=== PATIENT | female | born 1960 | race Caucasian/White ===

== ENCOUNTER 2024-04-14 16:41 | Emergency (ER) | payer BC, SELFPAY ==
[2024-04-14 16:43] VITALS: BP 145/98
[2024-04-14 17:09] LABS: Urine Albumin Trace (Neg - Trace); Urine Bilirubin Negative (Negative); Urine Character Clear (Clear); Urine Color Yellow; Urine Glucose Negative (Negative); Urine Ketone Negative (Negative); Urine Leukocyte Trace (Negative); Urine Nitrite Negative (Negative); Urine Occult Blood Negative (Negative); Urine Urobilinogen Negative (Neg - 1+)
[2024-04-14 17:31] LABS: Urine Bacteria Few (Negative); Urine Mucus Few; Urine Red Blood Cell 0-2 /HPF (0-2); Urine White Cell 0-2 /HPF (0-5)
[2024-04-14] MEDS: NSS 1000 IV (18:18)
[2024-04-14 18:22] VITALS: BMI 30.9
[2024-04-14 18:31] LABS: % Basophils 0.2 % (0-2); % Eosinophils 0.3 % (0-6); % Immature Granulocytes 0.3 % (0-0.5); % Lymphocytes 16.4 % (20.5-51.1); % Monocytes 6.5 % (1.7-9.3); % Neutrophils 76.3 % (42.2-75.2); Absolute Lymphocytes 2.4 10^3/uL (1.2-3.4); Absolute Neutrophils 11.3 10^3/uL (1.4-6.5); Hematocrit 40.2 % (37.0-47.0); Hemoglobin 13.8 g/dL (12.0-16.0); Mean Corp Hgb Conc. 34.3 g/dL (33.0-37.0); Mean Corpuscular Hgb 29.4 pg (27.0-31.0); Mean Corpuscular Volume 85.7 fL (81.0-99.0); Mean Platelet Volume 9.4 fL (7.4-10.4); Nucleated Red Blood Cells % 0 %; Platelet Count 238 10^3/uL (130-400); Red Blood Cell Count 4.69 10^6/uL (4.20-5.40); Red Cell Dist. Width 12.9 % (11.5-14.5); White Blood Cell Count 14.9 10^3/uL (4.8-10.8)
[2024-04-14 18:45] LABS: Lactic Acid 0.7 mmol/L (0.7-2.0)
[2024-04-14 18:47] LABS: ALT (SGPT) 35 U/L (0-35); AST (SGOT) 26 U/L (14-36); Albumin 4.1 g/dl (3.5-5.0); Alkaline Phosphatase 99 U/L (38-126); Blood Urea Nitrogen 10 mg/dl (7-17); Calcium 9.4 mg/dl (8.4-10.2); Carbon Dioxide 26 mmol/L (22-30); Chloride 99 mmol/L (98-107); Estimated Creatinine Clearance 97 ml/min; Glucose 92 mg/dl (70-99); Potassium 3.8 mmol/L (3.5-5.1); Sodium 134 mmol/L (135-145); Total Bilirubin 1.5 mg/dl (0.2-1.3); Total Protein 6.4 g/dl (6.3-8.2); eGFR > 60.00
[2024-04-14] MEDS: FLAGYL 500 MG PO (20:32)
[2024-04-14] MEDS: LEVAQUIN 500 MG PO (20:32)
[2024-04-14 20:33] VITALS: BP 147/87
--- NOTE | 2024-04-14 20:49 | ED.GENMED ---
History of Present Illness
General
Chief Complaint: Abdominal Symptoms
Source: patient and spouse
Time Seen by Provider: 04/14/24 17:33
History of Present Illness
History of Present Illness:
63-year-old female who presents with lower abdominal pain. Patient was seen at urgent care and was diagnosed with UTI and put on Bactrim. Patient awakened at 17,000. Patient returned for lower abdominal pain and back pain today. Also had some
chills. Presents to ER for further evaluation. Patient states on my evaluation check she feels better. Initially and had some urinary frequency and in the past has had a UTI. No vomiting.
Past History
Past History
ED Past Medical History: Hypercholesterolemia and Other (UTI)
ED Past Surgical History: Orthopedic
Phy Exam
Physical Exam
Physical Exam:
CONSTITUTIONAL Patient alert and oriented to person, place and time. Well-appearing. Vital signs reviewed.
HEAD atraumatic, normocephalic.
EYES eyelids normal to inspection, Pupils equally round and reactive to light, Extraocular muscles intact, Conjunctiva normal, Sclera normal.
NECK normal range of motion, Trachea midline, no jugular venous distention.
RESPIRATORY CHEST No respiratory distress noted, Chest expansion equal, Bilateral breath sounds clear.
CARDIOVASCULAR regular rate and rhythm, Heart sounds normal.
ABDOMEN mild to moderate suprapubic tenderness, Bowel sounds normal. No distention.
BACK normal inspection, no obvious deformities
UPPER EXTREMITY range of motion normal, Motor strength normal, no cyanosis, no edema.
LOWER EXTREMITY range of motion normal, Motor strength normal, no cyanosis, no edema.
NEURO Speech normal, No focal motor deficits, Tien coma scale 15, Memory normal, Cranial Nerves intact to screening exam.
SKIN skin warm, dry, and normal in color.
PSYCHIATRIC patient oriented to person place and time, Normal affect.
Course
Orders/Labs/Results
Orders:
Orders
04/14/24 16:53
Urinalysis Reflex To Culture Urgent
Date Specimen was Collected: 04/14/24
Time Specimen was Collected: 16:49
Urine Microscopic Reflex Cult Urgent
04/14/24 17:54
CT Abd/pel Without Iv Or Oral Urgent
Comment:
Reason For Exam: UTI, leukocytosis, R flank pain, r/o obstruction
0.9% Sodium Chloride 1000 ml [Nss] 1,000 ml IV BOLUS
04/14/24 18:16
Complete Blood Count/With Diff Urgent
Comprehensive Metabolic Panel Urgent
Lactic Acid Q4H
Comment: CANCEL 2nd LACTIC ACID IF 1st LACTIC ACID IS LESS THAN 2
Blood Culture Q30M
VINCE Source: Blood/Venous
Specimen Description:
04/14/24 18:19
Blood Culture Q30M
VINCE Source: Blood/Venous
Specimen Description:
04/14/24 20:25
LevoFLOXacin [Levaquin] 500 mg PO NOW STA
MetroNIDAZOLE [Flagyl] 500 mg PO NOW STA
04/14/24 20:49
LevoFLOXacin [Levaquin] 500 mg PO NOW STA
MetroNIDAZOLE [Flagyl] 500 mg PO NOW STA
Abnormal Lab Results
04/14/24 04/14/24
16:53 18:16
WBC 14.9 H 10^3/uL
(4.8-10.8)
Absolute Neuts (auto) 11.3 H 10^3/uL
(1.4-6.5)
Absolute Monos (auto) 1.0 H 10^3/uL
(0.1-0.6)
Neutrophils % 76.3 H %
(42.2-75.2)
Lymphocytes % 16.4 L %
(20.5-51.1)
Sodium 134 L mmol/L
(135-145)
Total Bilirubin 1.5 H mg/dl
(0.2-1.3)
Leukocyte Esterase Rfl Trace A
(Negative)
Urine Bacteria (Reflex) Few A
(Negative)
04/14/24 18:16
04/14/24 18:16
Vital Signs
Initial and Last Documented VS:
Initial Vital Signs
Temp Pulse Resp BP Pulse Ox
98.1 F 90 16 145/98 100
04/14/24 16:43 04/14/24 16:43 04/14/24 16:43 04/14/24 16:43 04/14/24 16:43
Last Documented Vital Signs
Temp Pulse Resp BP Pulse Ox
98.1 F 74 19 147/87 100
04/14/24 16:43 04/14/24 20:33 04/14/24 20:33 04/14/24 20:33 04/14/24 20:33
MDM/Problems Addressed
MDM/Problems Addressed:
Acute diverticulitis
*Radiology
Radiology exam reviewed: preliminary read by ED provider (Diverticulitis) and radiology read reviewed
*Pulse Oximetry
Patient hypoxic: no
*Critical Care Note
Total Time (30-74mins, 75-104mins- exclusive of procedures): Not Applicable
Data Reviewed
Source: patient and spouse
Further Testing Considered But Not Given:
Consider CT with IV contrast but noncontrast study to evaluate tract for stones
Patient Management
Escalation/DeEscalation of care consider admission/obs:
61-year-old female presents for evaluation but found to have diverticulitis. I suspect this is the cause of her leukocytosis and initial symptoms given approximately 3 bladder. Cover with Levaquin Flagyl and okay for discharge
ED Attending Note
-
Portions of this chart may have been created with voice recognition software.� Occasional wrong word or��sound alike� substitutions may have occurred due to the inherent limitations of voice recognition software.
Discharge Plan
Departure
Patient Disposition: Home (Routine Discharge)
Date of Disposition: 04/14/24
Time of Disposition: 20:50
Patient with high blood pressure during this ER visit?: Yes
Discharge Problem:
Diverticulitis
Instructions: Diverticulitis (DC), BLOOD PRESSURE
Prescriptions:
New
levofloxacin 500 mg tablet
500 mg PO DAILY 10 Days Qty: 10 0RF
metronidazole 500 mg tablet
500 mg PO TID Qty: 30 0RF
Referrals:
Sherwin Mirza DO [Family Provider] -
Activity Restrictions/Additional Instructions:
Please stick to a low residue diet as discussed. Please see your doctor next week for follow-up and reevaluation. Further follow-up with gastroenterology may be necessary. Return to [facility] for worsening pain, intractable pain, fevers, blood in
stool or any other concerns
Interventions
Interventions:
*Risk Screen - Suicide Last Done: 04/14/24 18:22
*General Assessment Last Done: 04/14/24 16:43
*Neglect/Abuse Screening Last Done: 04/14/24 18:22
ED- Fall Risk Assessment Last Done: 04/14/24 18:22
*ED COVID-19 Vaccine History Last Done: 04/14/24 16:43
*Nursing Disposition Last Done: 04/14/24 20:58
[facility]-Pjavbp-Zkjbkttfms Assessment Last Done: 04/14/24 18:22
Discharge Date and Time
Discharge Date/Time: 04/14/24 20:58
Print Language: FRENCH
== END 2024-04-14 20:58 | disposition home or self-care (01) ==
LOC: EMR 16:41
PROVIDERS: EMERGENCY PHYSICIAN Emergency Medicine; FAMILY PHYSICIAN Family Medicine
DX: K57.92 Diverticulitis of intestine, part unspecified, without perforation or abscess without bleeding (principal); N39.0 Urinary tract infection, site not specified; R03.0 Elevated blood-pressure reading, without diagnosis of hypertension; E78.00 Pure hypercholesterolemia, unspecified; Z87.440 Personal history of urinary (tract) infections
CPT/HCPCS: 99284; 96360; 74176; 80053; 81003; 81015; 83605; 85025; 87040

== ENCOUNTER 2024-08-08 14:34 | Emergency (ER) | payer BC, SELFPAY ==
[2024-08-08 14:46] VITALS: BP 165/108
--- NOTE | 2024-08-08 14:48 | ED.GENMED ---
ED Provider Triage
<Gerhard Oseguera PA-C - Last Filed: 08/08/24 14:51>
-
Patient seen by provider in Triage?: Seen in Triage
63-year-old female with history of diverticulitis presents with worsening left lower quadrant abdominal pain for several days. She was presumed to have a flare of her diverticulitis and started Augmentin 3 days ago. She has been on 2 doses of that
every day since then. She notes vomiting chills and persistent pain. No prior abdominal surgical history. Vital signs are stable through triage. Will check labs. Check CT of abdomen with IV contrast to evaluate for diverticulitis versus abscess
versus other sources of discomfort.
4 mg ODT Zofran ordered in triage
History of Present Illness
<Gerhard Oseguera PA-C - Last Filed: 08/08/24 14:51>
General
Chief Complaint: Abdominal Pain
Time Seen by Provider: 08/08/24 20:22
<Mamadou Romano DO - Last Filed: 08/08/24 21:55>
History of Present Illness
History of Present Illness:
TIME OF INITIAL ENCOUNTER: 8:30 PM
HPI: 63-year-old female with history of diverticulitis presents with worsening left lower quadrant abdominal pain for several days. She was presumed to have a flare of her diverticulitis and started Augmentin 3 days ago. She has been on 2 doses
of that every day since then. She notes vomiting chills and persistent pain. No prior abdominal surgical history.
EXAM:
GENERAL: Well appearing in no distress
HEENT: Moist oral mucosa
CARDIOVASCULAR: No murmurs, normal heart rate, regular rhythm, No chest wall tenderness
PULMONARY: No respiratory distress, breath sounds are clear and equal
ABDOMEN: Soft with no peritoneal signs, no tenderness
NEUROLOGIC: Excellent strength all extremities, no coordination deficits
PSYCHIATRIC: Appropriate mental status, normal insight and judgement
EXTREMITIES: Nontender, no edema, moves all extremities equally
SKIN: No rash, no lesions
NUMBER AND COMPLEXITY OF PROBLEMS ADDRESSED AT THE ENCOUNTER
� Chronic conditions affecting care: Diverticular disease, hyperlipidemia
� Acute Exacerbation and/or Progression of Chronic Illness: This is an acute problem
� Differential Diagnosis includes: Diverticulitis, abscess, perforation, medication (Augmentin) intolerant
AMOUNT AND/OR COMPLEXITY OF DATA TO BE REVIEWED AND ANALYZED
� I performed an independent evaluation of and my interpretation is:
EKG:
CT: CT imaging personally reviewed and agree with radiologist interpretation
X-rays:
Laboratory Studies: White count is normal, chemistries unremarkable other than minimal elevation of transaminases
Other:
� Review of other/old records: I reviewed records, the patient was seen in the ER in March and was treated as an outpatient for diverticulitis
� Clinical information was obtained by an independent historian: I spoke to the at bedside
� Prescriptions/Medications Considered but not given:
� Further testing considered but not performed:
RISK OF COMPLICATIONS AND/OR MORBIDITY OR MORTALITY OF PATIENT MANAGEMENT
� Social determinants of health affecting care: Lives at home
� Discussion with other providers:
� Escalation of care including admission/observation vs risk of discharge considered: I discussed CT report with patient. No clear evidence of diverticulitis today. I informed her of the questionable abnormality of the pancreas
and need for outpatient nonemergent MRI. She is to follow-up with her primary care doctor about this. We did talk about the possibly of the Augmentin make her symptoms worse. She is going to stop the Augmentin and I did send a prescription to the
pharmacy for Cipro and Flagyl in case her symptoms recur.
ANY OTHER UPDATES:
Past History
<Gerhard Oseguera PA-C - Last Filed: 08/08/24 14:51>
Past History
ED Past Medical History: Hypercholesterolemia and Other (UTI)
ED Past Surgical History: Orthopedic
Phy Exam
<Mamadou Romano DO - Last Filed: 08/08/24 21:55>
Physical Exam
Physical Exam:
See HPI
Course
<Gerhard Oseguera PA-C - Last Filed: 08/08/24 14:51>
Orders/Labs/Results
Orders:
Orders
08/08/24 14:48
CT Abd/pelvis W Iv Cont Urgent
Comment:
Reason For Exam: llq pain
08/08/24 14:51
Ondansetron Orally Disint [Zofran Odt (Orally Disintegrating)] 4 mg PO NOW STA
08/08/24 14:52
Ondansetron Orally Disint [Zofran Odt (Orally Disintegrating)] 4 mg .ROUTE .STK-MED ONE
08/08/24 14:59
Complete Blood Count/With Diff Urgent
Comprehensive Metabolic Panel Urgent
08/08/24 20:07
Urinalysis Reflex To Culture Urgent
Date Specimen was Collected: 08/08/24
Time Specimen was Collected: 15:04
Urine Microscopic Reflex Cult Urgent
Urine Culture Urgent
VINCE Source: U
Specimen Description:
Date Specimen was Collected: 08/08/24
Time Specimen was Collected: 15:04
08/08/24 21:06
0.9% Sodium Chloride 1000 ml [Nss] 1,000 ml IV BOLUS
Abnormal Lab Results
08/08/24 08/08/24
14:59 20:07
Eosinophils % 6.3 H %
(0-6)
BUN 6 L mg/dl
(7-17)
Creatinine 0.5 L mg/dL
(0.6-1.0)
Glucose 104 H mg/dl
(70-99)
AST 54 H U/L
(14-36)
ALT 37 H U/L
(0-35)
Urine Ketones 3+ A
(Negative)
Urine Bilirubin 1+ A
(Negative)
Urine Urobilinogen 2+ A
(Neg - 1+)
Leukocyte Esterase Rfl 2+ A
(Negative)
Urine WBC (Reflex) 40-50 A /HPF
(0-5)
Urine Bacteria (Reflex) Few A
(Negative)
08/08/24 14:59
08/08/24 14:59
Vital Signs
Initial and Last Documented VS:
Initial Vital Signs
Temp Pulse Resp BP Pulse Ox
98.0 F 99 16 165/108 96
08/08/24 14:46 08/08/24 14:46 08/08/24 14:46 08/08/24 14:46 08/08/24 14:46
Last Documented Vital Signs
Temp Pulse Resp BP Pulse Ox
97.8 F 84 18 133/68 96
08/08/24 18:07 08/08/24 21:43 08/08/24 21:43 08/08/24 21:03 08/08/24 21:43
<Mamadou Romano, DO - Last Filed: 08/08/24 21:55>
Orders/Labs/Results
Orders:
Orders
08/08/24 14:48
CT Abd/pelvis W Iv Cont Urgent
Comment:
Reason For Exam: llq pain
08/08/24 14:51
Ondansetron Orally Disint [Zofran Odt (Orally Disintegrating)] 4 mg PO NOW STA
08/08/24 14:52
Ondansetron Orally Disint [Zofran Odt (Orally Disintegrating)] 4 mg .ROUTE .STK-MED ONE
08/08/24 14:59
Complete Blood Count/With Diff Urgent
Comprehensive Metabolic Panel Urgent
08/08/24 20:07
Urinalysis Reflex To Culture Urgent
Date Specimen was Collected: 08/08/24
Time Specimen was Collected: 15:04
Urine Microscopic Reflex Cult Urgent
Urine Culture Urgent
VINCE Source: U
Specimen Description:
Date Specimen was Collected: 08/08/24
Time Specimen was Collected: 15:04
08/08/24 21:06
0.9% Sodium Chloride 1000 ml [Nss] 1,000 ml IV BOLUS
Abnormal Lab Results
08/08/24 08/08/24
14:59 20:07
Eosinophils % 6.3 H %
(0-6)
BUN 6 L mg/dl
(7-17)
Creatinine 0.5 L mg/dL
(0.6-1.0)
Glucose 104 H mg/dl
(70-99)
AST 54 H U/L
(14-36)
ALT 37 H U/L
(0-35)
Urine Ketones 3+ A
(Negative)
Urine Bilirubin 1+ A
(Negative)
Urine Urobilinogen 2+ A
(Neg - 1+)
Leukocyte Esterase Rfl 2+ A
(Negative)
Urine WBC (Reflex) 40-50 A /HPF
(0-5)
Urine Bacteria (Reflex) Few A
(Negative)
08/08/24 14:59
08/08/24 14:59
Vital Signs
Initial and Last Documented VS:
Initial Vital Signs
Temp Pulse Resp BP Pulse Ox
98.0 F 99 16 165/108 96
08/08/24 14:46 08/08/24 14:46 08/08/24 14:46 08/08/24 14:46 08/08/24 14:46
Last Documented Vital Signs
Temp Pulse Resp BP Pulse Ox
97.8 F 84 18 133/68 96
08/08/24 18:07 08/08/24 21:43 08/08/24 21:43 08/08/24 21:03 08/08/24 21:43
<Mamadou Romano DO - Last Filed: 08/08/24 21:55>
*Critical Care Note
Total Time (30-74mins, 75-104mins- exclusive of procedures): Not Applicable
ED Attending Note
<Gerhard Oseguera PA-C - Last Filed: 08/08/24 14:51>
-
Portions of this chart may have been created with voice recognition software.� Occasional wrong word or��sound alike� substitutions may have occurred due to the inherent limitations of voice recognition software.
Discharge Plan
Departure
Patient Disposition: Home (Routine Discharge)
Date of Disposition: 08/08/24
Time of Disposition: 21:48
Patient with high blood pressure during this ER visit?: Yes
Discharge Problem:
Abdominal pain
Instructions: Abdominal Pain
Prescriptions:
New
ciprofloxacin HCl [Cipro] 500 mg tablet
500 mg PO BID Qty: 14 0RF
metronidazole 500 mg tablet
500 mg PO BID Qty: 14 0RF
ondansetron HCl 4 mg tablet
4 mg PO Q8H PRN (Reason: nausea and vomiting) Qty: 10 0RF
No Action
levofloxacin 500 mg tablet
500 mg PO DAILY 10 Days Qty: 10 0RF
metronidazole 500 mg tablet
500 mg PO TID Qty: 30 0RF
Referrals:
Airam Couch DO [Family Provider] -
Activity Restrictions/Additional Instructions:
Since your white blood cell count is normal and the radiologist does not see any signs of infection, I think would be reasonable to stop the Augmentin. However if your symptoms persist or recur I did send a prescription to your pharmacy for Cipro
and Flagyl. Due to abnormality on urinalysis, urine culture pending. The radiologist also noted 'hypodense region of the pancreatic head possibly focal fatty infiltration, a mass cannot be excluded, nonemergent MRI examination of the pancreas is
recommended.'
Interventions
Interventions:
*Risk Screen - Suicide Last Done: 08/08/24 14:46
*General Assessment Last Done: 08/08/24 14:46
*Neglect/Abuse Screening Last Done: 08/08/24 14:46
ED- Fall Risk Assessment Last Done: 08/08/24 20:33
*ED COVID-19 Vaccine History Last Done: 08/08/24 14:46
[facility]-Ofgrew-Ahmrwlchnp Assessment Last Done: 08/08/24 20:33
Discharge Date and Time
Print Language: [place]
[2024-08-08] MEDS: ZOFRAN ODT (ORALLY DISINTEGRATING) 4 MG PO (14:53)
[2024-08-08 15:25] LABS: % Basophils 0.5 % (0-2); % Eosinophils 6.3 % (0-6); % Immature Granulocytes 0.3 % (0-0.5); % Lymphocytes 24.4 % (20.5-51.1); % Monocytes 8.1 % (1.7-9.3); % Neutrophils 60.4 % (42.2-75.2); Absolute Eosinophils 0.5 10^3/uL (0-0.7); Absolute Lymphocytes 1.9 10^3/uL (1.2-3.4); Absolute Monocytes 0.6 10^3/uL (0.1-0.6); Absolute Neutrophils 4.6 10^3/uL (1.4-6.5); Hematocrit 41.7 % (37.0-47.0); Hemoglobin 14.7 g/dL (12.0-16.0); Mean Corp Hgb Conc. 35.3 g/dL (33.0-37.0); Mean Corpuscular Hgb 30.8 pg (27.0-31.0); Mean Corpuscular Volume 87.2 fL (81.0-99.0); Mean Platelet Volume 9.8 fL (7.4-10.4); Nucleated Red Blood Cells % 0 %; Platelet Count 253 10^3/uL (130-400); Red Blood Cell Count 4.78 10^6/uL (4.20-5.40); Red Cell Dist. Width 12.3 % (11.5-14.5); White Blood Cell Count 7.7 10^3/uL (4.8-10.8)
[2024-08-08 15:33] LABS: ALT (SGPT) 37 U/L (0-35); AST (SGOT) 54 U/L (14-36); Albumin 4.3 g/dl (3.5-5.0); Alkaline Phosphatase 99 U/L (38-126); Blood Urea Nitrogen 6 mg/dl (7-17); Calcium 9.8 mg/dl (8.4-10.2); Carbon Dioxide 25 mmol/L (22-30); Chloride 102 mmol/L (98-107); Glucose 104 mg/dl (70-99); Potassium 3.9 mmol/L (3.5-5.1); Sodium 141 mmol/L (135-145); Total Protein 6.7 g/dl (6.3-8.2); eGFR > 60.00
[2024-08-08 18:07] VITALS: BP 130/83
[2024-08-08 19:58] VITALS: BMI 29.7
[2024-08-08 20:06] VITALS: BP 127/76
[2024-08-08 20:15] LABS: Urine Albumin Trace (Neg - Trace); Urine Bilirubin 1+ (Negative); Urine Character Clear (Clear); Urine Color Yellow; Urine Glucose Negative (Negative); Urine Ketone 3+ (Negative); Urine Leukocyte 2+ (Negative); Urine Nitrite Negative (Negative); Urine Occult Blood Negative (Negative); Urine Specific Gravity 1.025 (<1.030); Urine Urobilinogen 2+ (Neg - 1+)
[2024-08-08 20:38] LABS: Urine Bacteria Few (Negative); Urine Calcium Oxalate Crystals Seen; Urine Red Blood Cell 0-2 /HPF (0-2); Urine White Cell 40-50 /HPF (0-5)
[2024-08-08 21:03] VITALS: BP 133/68
[2024-08-08] MEDS: NSS 1000 IV (21:26)
[2024-08-08 21:59] VITALS: BP 148/77
[2024-08-08 22:00] VITALS: BP 150/81
== END 2024-08-08 22:05 | disposition home or self-care (01) ==
LOC: EMR 14:34
PROVIDERS: Physician Assistant; EMERGENCY PHYSICIAN Emergency Medicine; FAMILY PHYSICIAN Family Medicine
DX: R10.32 Left lower quadrant pain (principal); R03.0 Elevated blood-pressure reading, without diagnosis of hypertension
CPT/HCPCS: 99285; 96360; 74177; 80053; 81003; 81015; 85025; 87086; Q9967